=== PATIENT | male | born 1995 | race Caucasian/White ===

== ENCOUNTER 2018-05-06 00:28 | Emergency (ER) | payer SELFPAY ==
[~2018-05-06] VITALS: Ht 177.8 cm; Wt 77.1 kg
[2018-05-06 00:33] VITALS: BP 146/79
[2018-05-06] MEDS ORDERED: SILVER SULFADIAZINE CREAM 25 GM TUBE ONE ×2 (01:11→01:21)
[2018-05-06] MEDS ORDERED: HYDROCODONE/APAP 5/325MG 1 EACH TABLET ONE (01:11)
[2018-05-06] MEDS ORDERED: TDAP [DIPH/PERTUSSIS/TET] 0.5 ML VIAL IM ONE ×2 (01:12→01:30)
[2018-05-06] MEDS ORDERED: SILVER SULFADIAZINE CREAM 25 GM TUBE TP ONE (01:30)
[2018-05-06] MEDS ORDERED: HYDROCODONE/APAP 5/325MG 1 EACH TABLET PO ONE (01:30)
[2018-05-06] MEDS ORDERED: MISCELLANEOUS MED 1 EA EA XX ONE (01:30)
--- NOTE | 2018-05-06 01:51 | NUR ---
WOUND CARE PERFORMED BY SREEDHAR REDD. EDUCATED NOT TO DRIVE WITH [employer]CO USE
== END 2018-05-06 01:54 | disposition home or self-care (01) ==
LOC: ER 00:30
DX: T22.20XA Burn of second degree of shoulder and upper limb, except wrist and hand, unspecified site, initial encounter (principal); T24.202A Burn of second degree of unspecified site of left lower limb, except ankle and foot, initial encounter; T24.201A Burn of second degree of unspecified site of right lower limb, except ankle and foot, initial encounter; T24.212A Burn of second degree of left thigh, initial encounter; T24.211A Burn of second degree of right thigh, initial encounter; L55.1 Sunburn of second degree; L80 Vitiligo; Z23 Encounter for immunization; W18.30XA Fall on same level, unspecified, initial encounter; Y93.84 Activity, sleeping; Y92.830 Public park as the place of occurrence of the external cause; Y99.8 Other external cause status
CPT/HCPCS: 16020; 90471; 90715; 99284; A4606; Z7610